=== PATIENT | female | born 1980 | race Caucasian/White ===

== ENCOUNTER 2017-01-14 22:49 | Emergency (ER) | payer OTHER ==
[~2017-01-14] VITALS: Ht 152.4 cm; Wt 63.5 kg
--- NOTE | 2017-01-14 23:04 | NUR ---
SOWMYA Koo at bedside to eval.
--- NOTE | 2017-01-14 23:05 | NUR ---
To bed 8 a 36 yo female bibself w c/o "chest pain, cant catch breath x 5 days. i feel very stressed." Patient is aaox4, ambulatory with steady gait. Nad noted. Breathing even and unlabored. vss. nondiaphoretic. cardiac and vs monitoring on. Patient is appears anxious. Relaxation measures initiated. Safety and comfort measures rendered. Awaiting for er md wood.
[2017-01-14] MEDS ORDERED: LORAZEPAM 1 MG TABLET ONE (23:14)
--- NOTE | 2017-01-14 23:15 | NUR ---
medicated patient as ordered by Jax Koo.
--- NOTE | 2017-01-14 23:20 | NUR ---
urine collected via clean catch, called lab for waste picker.
[2017-01-14] MEDS ORDERED: LORAZEPAM 1 MG TABLET PO ONE (23:30)
[2017-01-14 23:38] LABS: BASOPHILS % (AUTO) 0.1 % (0.0-2.0); CALCIUM, SERUM 8.7 mg/dL (8.5-10.1); CARBON DIOXIDE 33 mmol/L (21-32); CHLORIDE 100 mmol/L (98-107); CREATININE 1.4 mg/dL (0.6-1.3); GLUCOSE 105 mg/dL (74-106); HEMATOCRIT 40 % (33-45); HEMOGLOBIN 13.5 g/dL (11.5-14.8); LYMPHOCYTES # (AUTO) 1.9 /CMM (0.8-4.8); LYMPHOCYTES % (AUTO) 21.9 % (20.0-44.0); MEAN CORPUSCULAR HEMOGLOBIN 31 PG (26.0-33.0); MEAN CORPUSCULAR HGB CONC 34 g/dl (31.0-36.0); MEAN CORPUSCULAR VOLUME 92 fL (82-100); MONOCYTES # (AUTO) 0.6 /CMM (0.1-1.30); MONOCYTES % (AUTO) 6.7 % (2.0-12.0); NEUTROPHILS # (AUTO) 6.2 /CMM (1.8-8.9); NEUTROPHILS % (AUTO) 71.3 % (43.0-81.0); PLATELET COUNT (AUTO) 204 /CMM (150-450); POTASSIUM 3.2 mmol/L (3.5-5.1); RDW COEFFICIENT OF VARIATION 12.6 (11.5-15.0); RED BLOOD CELL COUNT(AUTO) 4.34 MIL/uL (4.0-5.2); SODIUM SERUM 136 mmol/L (136-145); UREA NITROGEN, BLOOD 20 mg/dL (7-18); WHITE BLOOD COUNT (AUTO) 8.7 K/uL (4.3-11.0)
[2017-01-14 23:47] LABS: TROPONIN I < 0.017 ng/mL (0.00-0.056)
--- NOTE | 2017-01-15 00:08 | NUR ---
patient wanted to go home and said, "my kids are back there in the waiting room. I dont like them to wait not be able to sleep early cause they have school tomorrow." Jax Alicia at bedside talking to patient risks of leaving AMA, patient still wants to go AMA. Patient signed AMA form.
--- NOTE | 2017-01-15 00:16 | NUR ---
Patient discharged to home in stable condition. Written and verbal after care instructions given. Patient verbalizes understanding of instruction. Patient is amulatory with steady gait, no further complaints.
[2017-01-15 00:17] VITALS: BP 124/79
[2017-01-15 00:28] LABS: INR 1.01 (0.87-1.13); PROTHROMBIN TIME 10.8 SECS (9.5-12.7)
== END 2017-01-15 00:18 | disposition home or self-care (01) ==
LOC: ER 22:51
DX: R07.89 Other chest pain (principal)
CPT/HCPCS: 36415; 80048; 84484; 84703; 85025; 85378; 85730; 93005; 99285; A4606 ×2; Z7610 ×2

== ENCOUNTER 2018-05-24 13:15 | Emergency (ER) | payer OTHER ==
[~2018-05-24] VITALS: Ht 175.3 cm; Wt 63.5 kg
--- NOTE | 2018-05-24 13:30 | NUR ---
PT BIB [facility], C/O GLF X 30 MINS AGO , C/O HEADPAIN AND JAW PAIN - WAS JOGGING AND A TREE BRANCH FEEL ON HER HEAD. ALERT AND ORIENTED X 4, VERBALLY RESPONSIVE AND ABLE OT MAKE NEEDS KNOWN. ON ROOM AIR, BREATHING EVENLY ANDUNLABROED. KEPT COMFORTABLE. WILL CONTINUE TO MONITOR ACCORDINGLY.
[2018-05-24] MEDS ORDERED: ACETAMINOPHEN ES 500 MG TABLET ONE (13:45)
[2018-05-24] MEDS ORDERED: ONDANSETRON 4 MG TAB.RAPDIS ONE (13:45)
[2018-05-24] MEDS ORDERED: ACETAMINOPHEN ES 500 MG TABLET PO ONE (14:00)
[2018-05-24] MEDS ORDERED: ONDANSETRON 4 MG TAB.RAPDIS SL ONE (14:00)
[2018-05-24 15:20] VITALS: BP 139/68
--- NOTE | 2018-05-24 15:21 | NUR ---
Patient discharged to home in stable condition. Written and verbal after care instructions given. Patient verbalizes understanding of instruction.
== END 2018-05-24 15:20 | disposition home or self-care (01) ==
LOC: ER 13:15
DX: S06.0X9A Concussion with loss of consciousness of unspecified duration, initial encounter (principal); S19.89XA Other specified injuries of other specified part of neck, initial encounter; R51 Headache; Z98.890 Other specified postprocedural states; W20.8XXA Other cause of strike by thrown, projected or falling object, initial encounter; Y93.89 Activity, other specified; Y92.89 Other specified places as the place of occurrence of the external cause; Y99.8 Other external cause status
CPT/HCPCS: 70450-TC; 72125-TC; L0172; Q0162

== ENCOUNTER 2018-05-28 21:00 | Emergency (ER) | payer OTHER ==
[~2018-05-28] VITALS: Ht 175.3 cm; Wt 63.5 kg
[2018-05-28 23:08] VITALS: BP 121/74
--- NOTE | 2018-05-28 23:10 | NUR ---
PT BIB SELF C/O N/V x1 day, dizziness/fatigue. PT AOX4. NAD NOTED. RESP EVEN AND UNLABORED. PT ON MONITOR IN BED 10. WILL CONTINUE TO MONITOR.
== END 2018-05-29 00:01 | disposition home or self-care (01) ==
LOC: ER 21:07
DX: F07.81 Postconcussional syndrome (principal); Z98.890 Other specified postprocedural states